=== PATIENT | male | born 1950 | race Caucasian/White ===

== ENCOUNTER 2017-03-24 14:37 | Emergency (ER) | payer OTHER ==
[~2017-03-24] VITALS: Ht 177.8 cm; Wt 73.7 kg
[~2017-03-24 14:37] MED LIST: ACET325T14 PO; BENA10TA2 PO; CITA20TA9 PO; ERTA1VIA IV; NICO-430 TD; POLY17PO5 PO; TAMS-11 PO; [UNRECOGNIZED DRUG - CODE] PO
[2017-03-24] MEDS ORDERED: CODE BLUE RESPONSE XX ONE (14:58)
[2017-03-24] MEDS ORDERED: EPINEPHRINE SYRINGE 0.1 MG/ML, 10ML ONE (14:58)
== END 2017-03-24 21:05 | disposition expired ==
LOC: ED 14:45
DX: I46.9 Cardiac arrest, cause unspecified (principal)
CPT/HCPCS: 92950; 99285